=== PATIENT | female | born 1960 | race Caucasian/White ===

== ENCOUNTER 2024-07-29 12:00 | Outpatient (CLI) | payer MEDICARE, BC | END 2024-07-29 12:01 | disposition home or self-care (01) | LOC: CSHMAMMO 12:00 | PROVIDERS: ATTEND Internal Medicine Rheumatology | DX: Z78.0 Asymptomatic menopausal state (principal); M85.851 Other specified disorders of bone density and structure, right thigh | CPT/HCPCS: 77080 ==